=== PATIENT | female | born 1950 | race Caucasian/White ===

== ENCOUNTER 2016-09-18 10:22 | Emergency (ER) | payer OTHER ==
--- NOTE | 2016-09-18 12:02 | DIAGNOSTIC IMAGING REPORT ---
PROCEDURE: XR LUMBAR SPINE 2 OR 3 VIEWS INDICATION: TRAUMA/INJURY TECHNIQUE: Three views. COMPARISON: None. FINDINGS: Osteopenia with mild levoscoliosis and degenerative changes. Mild L2 of compression fracture of uncertain age. Loss of lordosis. Right pelvic surgical clips. Severe obstipation. IMPRESSION: 1. Mild L2 compression fracture which may be acute or subacute 2. Osteopenia 3. Mild levoscoliosis and degenerative changes.
--- NOTE | 2016-09-18 12:21 | ED CLINICAL REPORT ---
Clinical Report - Physicians/Mid Levels [facility] [address] [place] [address] 09/18/2016 10:27 Patient: SALVADOR NAZARIO Time Seen: 10:40; initial patient contact. Arrived- By ambulance. Historian- patient. HISTORY OF PRESENT ILLNESS Chief Complaint: BACK INJURY and BACK PAIN. Onset- about 2 weeks ago and it is still present. It was abrupt in onset. Modifying factors. Not worsened by anything. Not relieved by anything. It is described as being moderate in degree and in the area of the lower lumbar spine and sacrum. The quality is noted to be aching. No radiation. No bladder dysfunction, bowel dysfunction, sensory loss or motor loss. Patient notes an injury but denies injury to the head or neck. Mechanism of injury- she slipped and fell 1-2 feet while walking. (Down 1 step landing on her buttocks). Similar symptoms previously: None. Recent medical care: Not recently seen/assessed. REVIEW OF SYSTEMS No difficulty with urination or joint pain. She has had back pain. All systems otherwise negative, except as recorded above. PAST HISTORY Asthma. Chronic neck pain with spasms. Depression. SURGERIES: . Hysterectomy. Spleen. Tonsillectomy. SOCIAL HISTORY Current every day smoker. No alcohol use or drug use. ADDITIONAL NOTES The nursing notes have been reviewed with agreement regarding the chief complaint, PMH and patient medications and allergies. PHYSICAL EXAM Vital Signs: 09/18/2016 10:35 BP: 103/63. HR: 90. RR: 18. O2 saturation: 95%. Temp: 97.7 F. Pain level now: 8/10. Have been reviewed. Blood pressure normal. Heart rate normal. Respiratory rate normal. Temperature normal. Oxygen saturation normal. Appearance: Alert. No acute distress. HEENT: Normal external inspection. CVS: Heart sounds normal. No cardiac murmur. Respiratory: No respiratory distress. Breath sounds normal. Abdomen: No visible injury. Soft and nontender. Bowel sounds normal. Back: Normal inspection. Moderate soft tissue tenderness in the right lower, left lower and lower central lumbar area. No muscle spasm in the back or vertebral point tenderness. Neuro: Oriented X 3. No motor deficit. No sensory deficit. Straight leg raising: negative on the right and negative on the left. Reflexes normal. LABS, X-RAYS, AND EKG LS-Spine X-rays: Mild lumbar scoliosis (Levo). Mild degenerative joint disease with slight narrowing of disc spaces. No fracture or subluxation. No bony lesion. Views: AP. Technique: good. The X-rays were independently viewed by me and interpreted contemporaneously by me. Prior films were not available for comparison. Interpretation time: 11:30. PROGRESS AND PROCEDURES Disposition: Discharged home in good and improved condition. Condition: good. CLINICAL IMPRESSION Single contusion to the right and left buttocks. INSTRUCTIONS Apply ice for 20 minutes four times a day. Don't apply ice directly to skin. Your Current Medications: CONTINUE TAKING THE FOLLOWING MEDICATIONS: Albuterol Sulfate Inhalation : 2 puffs PRN. [place] Oral : 3 tabs at night, not sure of dosage, hasn't taken for 2 years. SEROquel Oral : 25 mg daily, hasn't had for 2 years. Spiriva HandiHaler Inhalation : daily. Prescription Medications: Tramadol 50 mg: take 1 orally as needed for pain and stiffness. Do not take more than 8 tablets in a 24 hour period. Dispense twenty (20). No refills. (weight =) Follow-up: Follow up with your doctor in about two days. Call for an appointment. Screening today revealed the patient's blood pressure to be in the normal range. (Electronically signed by Abdon العراقي Dr. 09/18/2016 12:24)
--- NOTE | 2016-09-18 12:21 | ED CLINICAL REPORT ---
Clinical Report - Physicians/Mid Levels [facility] [address] [place] [address] 09/18/2016 10:27 Patient: SALVADOR NAZARIO Time Seen: 10:40; initial patient contact. Arrived- By ambulance. Historian- patient. HISTORY OF PRESENT ILLNESS Chief Complaint: BACK INJURY and BACK PAIN. Onset- about 2 weeks ago and it is still present. It was abrupt in onset. Modifying factors. Not worsened by anything. Not relieved by anything. It is described as being moderate in degree and in the area of the lower lumbar spine and sacrum. The quality is noted to be aching. No radiation. No bladder dysfunction, bowel dysfunction, sensory loss or motor loss. Patient notes an injury but denies injury to the head or neck. Mechanism of injury- she slipped and fell 1-2 feet while walking. (Down 1 step landing on her buttocks). Similar symptoms previously: None. Recent medical care: Not recently seen/assessed. REVIEW OF SYSTEMS No difficulty with urination or joint pain. She has had back pain. All systems otherwise negative, except as recorded above. PAST HISTORY Asthma. Chronic neck pain with spasms. Depression. SURGERIES: . Hysterectomy. Spleen. Tonsillectomy. SOCIAL HISTORY Current every day smoker. No alcohol use or drug use. ADDITIONAL NOTES The nursing notes have been reviewed with agreement regarding the chief complaint, PMH and patient medications and allergies. PHYSICAL EXAM Vital Signs: 09/18/2016 10:35 BP: 103/63. HR: 90. RR: 18. O2 saturation: 95%. Temp: 97.7 F. Pain level now: 8/10. Have been reviewed. Blood pressure normal. Heart rate normal. Respiratory rate normal. Temperature normal. Oxygen saturation normal. Appearance: Alert. No acute distress. HEENT: Normal external inspection. CVS: Heart sounds normal. No cardiac murmur. Respiratory: No respiratory distress. Breath sounds normal. Abdomen: No visible injury. Soft and nontender. Bowel sounds normal. Back: Normal inspection. Moderate soft tissue tenderness in the right lower, left lower and lower central lumbar area. No muscle spasm in the back or vertebral point tenderness. Neuro: Oriented X 3. No motor deficit. No sensory deficit. Straight leg raising: negative on the right and negative on the left. Reflexes normal. LABS, X-RAYS, AND EKG LS-Spine X-rays: Mild lumbar scoliosis (Levo). Mild degenerative joint disease with slight narrowing of disc spaces. No fracture or subluxation. No bony lesion. Views: AP. Technique: good. The X-rays were independently viewed by me and interpreted contemporaneously by me. Prior films were not available for comparison. Interpretation time: 11:30. PROGRESS AND PROCEDURES Disposition: Discharged home in good and improved condition. Condition: good. CLINICAL IMPRESSION Single contusion to the right and left buttocks. INSTRUCTIONS Apply ice for 20 minutes four times a day. Don't apply ice directly to skin. Your Current Medications: CONTINUE TAKING THE FOLLOWING MEDICATIONS: Albuterol Sulfate Inhalation : 2 puffs PRN. [place] Oral : 3 tabs at night, not sure of dosage, hasn't taken for 2 years. SEROquel Oral : 25 mg daily, hasn't had for 2 years. Spiriva HandiHaler Inhalation : daily. Prescription Medications: Tramadol 50 mg: take 1 orally as needed for pain and stiffness. Do not take more than 8 tablets in a 24 hour period. Dispense twenty (20). No refills. (weight =) Follow-up: Follow up with your doctor in about two days. Call for an appointment. Screening today revealed the patient's blood pressure to be in the normal range. (Electronically signed by Abdon العراقي Dr. 09/18/2016 12:24)
--- NOTE | 2016-09-18 12:21 | ED ORDER SUMMARY ---
..... Patient: SALVADOR NAZARIO OrderSheet [facility] VisitID: [id number] [address] [place] [address] 66y, F Registration Date/Time: 09/18/2016 ORDER SHEET Weight: 39.4 kg (stated) Allergies: No Known Drug Allergy GENERAL ORDERS: Lumbar Spine 2 or 3V Urgent (11:01 09/18/2016 Nina Mandel) (Ack 11:05 TBergley) (11:13 TBergley) MEDICATION ORDERS: Toradol IM 60 mg (NOW) (11:00 09/18/2016 Nina Mandel) (Ack 11:04 DDean R.N.) (11:10 DDean R.N.) IV FLUIDS: ORDER SHEET NOTES: [Electronically signed by Abdon العراقي Dr. (12:24 09/18/2016)] [Electronically signed by Erika Carpio R.N. (12:52 09/18/2016)] [Electronically locked/signed by Erika Carpio R.N. (12:52 09/18/2016)]
--- NOTE | 2016-09-18 12:21 | ED ORDER SUMMARY ---
..... Patient: SALVADOR NAZARIO OrderSheet [facility] VisitID: [id number] [address] [place] [address] 66y, F Registration Date/Time: 09/18/2016 ORDER SHEET Weight: 39.4 kg (stated) Allergies: No Known Drug Allergy GENERAL ORDERS: Lumbar Spine 2 or 3V Urgent (11:01 09/18/2016 Nina Mandel) (Ack 11:05 TBergley) (11:13 TBergley) MEDICATION ORDERS: Toradol IM 60 mg (NOW) (11:00 09/18/2016 Nina Mandel) (Ack 11:04 DDean R.N.) (11:10 DDean R.N.) IV FLUIDS: ORDER SHEET NOTES: [Electronically signed by Abdon العراقي Dr. (12:24 09/18/2016)] [Electronically signed by Erika Carpio R.N. (12:52 09/18/2016)] [Electronically locked/signed by Erika Carpio R.N. (12:52 09/18/2016)]
--- NOTE | 2016-09-18 12:21 | ED NURSING NOTES ---
Clinical Report - [facility] [address] [place] [address] 09/18/2016 10:27 Patient: SALVADOR NAZARIO TRIAGE Triage time 1035. Acuity: LEVEL 4. Chief Complaint: BACK PAIN and (low back and tailbone area. Pt fell down 6-7 stairs about 2 weeks ago, has not been seen by providier since event. Pt states pain is getting worse, and was evected yesterday and has been out walking all night). --10:52 Erika Carpio R.N. 10:35 09/18/16. BP: 103/63. HR: 90. RR: 18. O2 saturation: 95% on room air. Temp: 97.7 F. Pain level now: 03/10. --10:52 Erika Carpio R.N. Weight: 39.4 kg stated. Height/Length: 62 inches Per Patient. BMI: 15.9. --10:50 Erika Carpio R.N. Medications Albuterol Sulfate Inhalation 2 puffs, PRN. [place] Oral 3 tabs at night, not sure of dosage (hasn't taken for 2 years ). SEROquel Oral 25 mg, daily (hasn't had for 2 years). Spiriva HandiHaler Inhalation, daily. --10:49 Erika Carpio R.N. Allergies No Known Drug Allergy. --10:48 Erika Carpio R.N. History Historian: patient. Arrived (taxi) and accompanied by son. ( "things have been going down hill for 2 years, after my boyfriend "). SOCIAL HX: Light tobacco smoker (cigarette)- less than 1/2 a pack per day. History of drug use. (used to smoke pot years ago). No alcohol use. --10:52 Erika Carpio R.N. PROBLEMS: Asthma. Chronic neck pain with spasms. --10:47 Erika Carpio R.N. Depression. --10:47 Erika Carpio R.N. ADDITIONAL SURGERIES: . Hysterectomy. Spleen. Tonsillectomy. --10:47 Erika Carpio R.N. Interventions ID band on patient. To treatment room. --10:52 Erika Carpio R.N. PHYSICAL ASSESSMENT 10:35. To room via wheelchair. Patient gowned. GENERAL / NEURO / PSYCH: Alert. Oriented X 4. Appears in pain. RESPIRATORY: Respirations not labored. CVS: Capillary refill less than 2 seconds. GI / : Abdomen soft. BACK: Limited ROM of the back. Soft tissue tenderness. --10:53 Erika Carpio R.N. NURSING PROGRESS NOTES 10:35. Patient gowned. Head of bed elevated. Reassurance given. Patient identifiers checked. Call light placed in reach. Side rails up. Bed placed in lowest position. Patient ready for evaluation- chart flagged. --10:53 Erika Carpio R.N. 11:05 09/18/2016 Toradol (Ketorolac Tromethamine) IM 60 mg given. Given in the right ventral gluteus. --11:10 Erika Carpio R.N. 11:05. Patient transported to radiology by stretcher with tech. --11:11 Erika Carpio R.N. 11:14 09/18/16. Patient returned from radiology by stretcher with tech. --11:14 Erika Carpio R.N. 12:00 resting quietly, states pain is 5/10. --12:16 Erika Carpio R.N. 12:35. ( assisted pt to get dressed. pt given bus pas and sandwich, directed to phone. out via her own w/c). --12:51 Erika Carpio R.N. DISPOSITION / DISCHARGE 12:40. Condition at departure: improved and stable. No learning barriers present. Discharge instructions provided and reviewed with the patient (son). Reviewed medication(s) (tramadol). Patient verbalized understanding. Written instructions provided in [place]ic. The patient was accompanied by son. She left the Emergency Department in a wheelchair and via bus and with fare provided. --12:50 Erika Carpio R.N. 12:40 09/18/16. BP: 103/65. HR: 82. RR: 18. O2 saturation: 94% on room air. Temp: deferred. Pain level now: 11/08. --12:50 Erika Carpio R.N. 12:40. MAKAYLA COMA SCORE: Makayla Coma Scale: 15- eyes open spontaneously (4); best verbal response- oriented x 4 (5); best motor response- obeys commands (6). --12:52 Erika Carpio R.N. Locked/Released at 09/18/2016 12:52 by Erika Carpio R.N.
--- NOTE | 2016-09-18 12:52 | ED DISCHARGE INSTRUCTIONS ---
Patient: SALVADOR NAZARIO General Instructions [facility] VisitID: [id number] [place] [address] 66y, F Registration Date/Time: 09/18/2016 Single contusion to the right and left buttocks. INSTRUCTIONS Apply ice for 20 minutes four times a day. Don't apply ice directly to skin. Your Current Medications: CONTINUE TAKING THE FOLLOWING MEDICATIONS: Albuterol Sulfate Inhalation : 2 puffs PRN. [place] Oral : 3 tabs at night, not sure of dosage, hasn't taken for 2 years. SEROquel Oral : 25 mg daily, hasn't had for 2 years. Spiriva HandiHaler Inhalation : daily. Prescription Medications: Tramadol 50 mg: take 1 orally as needed for pain and stiffness. Do not take more than 8 tablets in a 24 hour period. Dispense twenty (20). No refills. (weight =) Follow-up: Follow up with your doctor in about two days. Call for an appointment. Screening today revealed the patient's blood pressure to be in the normal range. ADDITIONAL INFORMATION Contusion: Coccyx Or Sacrum You have a CONTUSION of the coccyx or sacrum. The sacrum is the triangular bone at the base of the spine that joins the pelvic bones. The coccyx (tailbone) is the last bone of the sacrum that hangs down in a point like a small tail. A contusion is a bruise with swelling and some bleeding under the skin. You have no broken bones. This injury takes a few days to a few weeks to heal. A crack (fracture) in the coccyx bone causes the same symptoms as a contusion of this bone. Often, x-rays are not taken of this area since the treatment is the same. A fracture of this bone will take about four weeks to heal. Home Care: Try to find a position of comfort. Try lying on your side with your knees bent up towards your chest and a pillow between your knees. Apply an ice pack (crushed or cubed ice in a plastic bag, wrapped in a towel) for 20 minutes every 2-4 hours during the first two days after a new injury. You may use acetaminophen (Tylenol) or ibuprofen (Motrin, Advil) to control pain, unless another pain medicine was prescribed. [ NOTE: If you have chronic liver or kidney disease or ever had a stomach ulcer or GI bleeding, talk with your doctor before using these medicines.] A bruised tailbone causes pain when sitting. You may try using a "donut pillow" which is a foam pillow that has a hole in the center to prevent pressure on the tailbone. You can obtain this at a pharmacy or orthopedic supply store. Follow Up with your doctor or this facility if your symptoms do not start to improve after one week. [NOTE: If X-rays were taken, they will be reviewed by a radiologist. You will be notified of any new findings that may affect your care.] Get Prompt Medical Attention if any of the following occur: Pain becomes worse or spreads to one or both legs Weakness or numbness in one or both legs Loss of bowel or bladder control Numbness in the groin area Redness, warmth or drainage from the skin Tramadol Hydrochloride Oral tablet What is this medicine? TRAMADOL (TRA ma dole) is a pain reliever. It is used to treat moderate to severe pain in adults. How should I use this medicine? Take this medicine by mouth with a full glass of water. Follow the directions on the prescription label. If the medicine upsets your stomach, take it with food or milk. Do not take more medicine than you are told to take. Talk to your coupon redemption clerk regarding the use of this medicine in children. Special care may be needed. What side effects may I notice from receiving this medicine? Side effects that you should report to your doctor or health senior resident care director as soon as possible: allergic reactions like skin rash, itching or hives, swelling of the face, lips, or tongue breathing difficulties, wheezing confusion itching light headedness or fainting spells redness, blistering, peeling or loosening of the skin, including inside the mouth seizures Side effects that usually do not require medical attention (report to your doctor or health senior resident care director if they continue or are bothersome): constipation dizziness drowsiness headache nausea, vomiting What may interact with this medicine? Do not take this medicine with any of the following medications: MAOIs like Carbex, Eldepryl, Marplan, Nardil, and Parnate This medicine may also interact with the following medications: alcohol or medicines that contain alcohol antihistamines benzodiazepines bupropion carbamazepine or oxcarbazepine clozapine cyclobenzaprine digoxin furazolidone linezolid medicines for depression, anxiety, or psychotic disturbances medicines for migraine headache like almotriptan, eletriptan, frovatriptan, naratriptan, rizatriptan, sumatriptan, zolmitriptan medicines for pain like pentazocine, buprenorphine, butorphanol, meperidine, nalbuphine, and propoxyphene medicines for sleep muscle relaxants naltrexone phenobarbital phenothiazines like perphenazine, thioridazine, chlorpromazine, mesoridazine, fluphenazine, prochlorperazine, promazine, and trifluoperazine procarbazine warfarin What if I miss a dose? If you miss a dose, take it as soon as you can. If it is almost time for your next dose, take only that dose. Do not take double or extra doses. Where should I keep my medicine? Keep out of the reach of children. Store at room temperature between 15 and 30 degrees C (59 and 86 degrees F). Keep container tightly closed. Throw away any unused medicine after the expiration date. What should I tell my health care provider before I take this medicine? They need to know if you have any of these conditions: brain tumor depression drug abuse or addiction head injury if you frequently drink alcohol containing drinks kidney disease or trouble passing urine liver disease lung disease, asthma, or breathing problems seizures or epilepsy suicidal thoughts, plans, or attempt; a previous suicide attempt by you or a family member an unusual or allergic reaction to tramadol, codeine, other medicines, foods, dyes, or preservatives or trying to get breast-feeding What should I watch for while using this medicine? Tell your doctor or health senior resident care director if your pain does not go away, if it gets worse, or if you have new or a different type of pain. You may develop tolerance to the medicine. Tolerance means that you will need a higher dose of the medicine for pain relief. Tolerance is normal and is expected if you take this medicine for a long time. Do not suddenly stop taking your medicine because you may develop a severe reaction. Your body becomes used to the medicine. This does NOT mean you are addicted. Addiction is a behavior related to getting and using a drug for a non-medical reason. If you have pain, you have a medical reason to take pain medicine. Your doctor will tell you how much medicine to take. If your doctor wants you to stop the medicine, the dose will be slowly lowered over time to avoid any side effects. You may get drowsy or dizzy. Do not drive, use machinery, or do anything that needs mental alertness until you know how this medicine affects you. Do not stand or sit up quickly, especially if you are an older patient. This reduces the risk of dizzy or fainting spells. Alcohol can increase or decrease the effects of this medicine. Avoid alcoholic drinks. You may have constipation. Try to have a bowel movement at least every 2 to 3 days. If you do not have a bowel movement for 3 days, call your doctor or health senior resident care director. Your mouth may get dry. Chewing sugarless gum or sucking hard candy, and drinking plenty of water may help. Contact your doctor if the problem does not go away or is severe. You have been given the following additional information: Contusion, Coccyx/Sacrum Tramadol Hydrochloride Oral tablet (Electronically signed by Abdon العراقي Dr. 09/18/2016 12:24)
--- NOTE | 2016-09-18 12:52 | ED MAR SUMMARY ---
..... Medication Administration Record [facility] [address] [place] [address] Patient: SALVADOR NAZARIO Visit ID: [id number] 66y, F Weight: 39.4 kg Height/Length: 62 in BMI: 15.9 ALLERGIES: No Known Drug Allergy Given 11:05 09/18/2016 BalajiErika R.N. Medication Administered: TORADOL [IM] (KETOROLAC TROMETHAMINE), Dose: 60 mg IM. Medication Ordered: Toradol IM 60 mg (NOW).
--- NOTE | 2016-09-18 12:52 | ED MED RECONCILIATION SUMMARY ---
Patient: SALVADOR NAZARIO Medication Reconciliation Report [facility] VisitID: [id number] [address] [place] [address] 66y, F Registration Date/Time: 09/18/2016 Weight: 39.4 kg Height/Length: 62 in. BMI: 15.9 ALLERGIES: No Known Drug Allergy The patient's Home Medications are listed below: CONTINUE TAKING THE FOLLOWING MEDICATIONS: Albuterol Sulfate Inhalation 2 puffs, PRN [place] Oral 3 tabs at night, not sure of dosage, hasn't taken for 2 years SEROquel Oral 25 mg, daily, hasn't had for 2 years Spiriva HandiHaler Inhalation, daily The source(s) of the original Home Medication information: Not obtained. The following Medications were given to the patient in the Emergency Department: Toradol [IM] IM 60 mg, administered: 09/18/2016 11:05:00 AM The following Medications were prescribed to the patient: Tramadol 50 mg: take 1 orally as needed for pain and stiffness. Do not take more than 8 tablets in a 24 hour period. Dispense twenty (20). No refills.(weight =) -- Abdon العراقي Dr.
--- NOTE | 2016-09-18 12:52 | ED MAR SUMMARY ---
..... Medication Administration Record [facility] [address] [place] [address] Patient: SALVADOR NAZARIO Visit ID: [id number] 66y, F Weight: 39.4 kg Height/Length: 62 in BMI: 15.9 ALLERGIES: No Known Drug Allergy Given 11:05 09/18/2016 BalajiErika R.N. Medication Administered: TORADOL [IM] (KETOROLAC TROMETHAMINE), Dose: 60 mg IM. Medication Ordered: Toradol IM 60 mg (NOW).
--- NOTE | 2016-09-18 12:52 | ED MED RECONCILIATION SUMMARY ---
Patient: SALVADOR NAZARIO Medication Reconciliation Report [facility] VisitID: [id number] [address] [place] [address] 66y, F Registration Date/Time: 09/18/2016 Weight: 39.4 kg Height/Length: 62 in. BMI: 15.9 ALLERGIES: No Known Drug Allergy The patient's Home Medications are listed below: CONTINUE TAKING THE FOLLOWING MEDICATIONS: Albuterol Sulfate Inhalation 2 puffs, PRN [place] Oral 3 tabs at night, not sure of dosage, hasn't taken for 2 years SEROquel Oral 25 mg, daily, hasn't had for 2 years Spiriva HandiHaler Inhalation, daily The source(s) of the original Home Medication information: Not obtained. The following Medications were given to the patient in the Emergency Department: Toradol [IM] IM 60 mg, administered: 09/18/2016 11:05:00 AM The following Medications were prescribed to the patient: Tramadol 50 mg: take 1 orally as needed for pain and stiffness. Do not take more than 8 tablets in a 24 hour period. Dispense twenty (20). No refills.(weight =) -- Abdon العراقي Dr.
== END 2016-09-18 12:40 | disposition home or self-care (01) ==
LOC: ED SRH 10:22
DX: S30.0XXA Contusion of lower back and pelvis, initial encounter (principal); W10.9XXA Fall (on) (from) unspecified stairs and steps, initial encounter; Y93.01 Activity, walking, marching and hiking; Y92.9 Unspecified place or not applicable; Y99.8 Other external cause status; J45.909 Unspecified asthma, uncomplicated; Z90.710 Acquired absence of both cervix and uterus; F17.210 Nicotine dependence, cigarettes, uncomplicated